=== PATIENT | male | born 1940 | race Caucasian/White ===

== ENCOUNTER 2020-08-18 02:10 | Emergency (ER) | payer MEDICARE ==
[~2020-08-18] VITALS: Ht 182.9 cm; Wt 90.7 kg
[2020-08-18 02:23] VITALS: BP 000/000
[2020-08-18] MEDS ORDERED: ASPIRIN325 PO (04:05)
[2020-08-18] MEDS ORDERED: LIPITOR 40 MG T40 M1 PO (04:05)
== END 2020-08-18 02:23 ==
LOC: M.ERS 02:10 → EDBD 02:10 → M.ERS 02:23
DX: I46.9 Cardiac arrest, cause unspecified (principal); E78.5 Hyperlipidemia, unspecified; Z90.49 Acquired absence of other specified parts of digestive tract; Z20.828 Contact with and (suspected) exposure to other viral communicable diseases